=== PATIENT | female | born 1975 | race Caucasian/White ===

== ENCOUNTER 2016-12-24 15:41 | Emergency (ER) | payer SELFPAY ==
[~2016-12-24] VITALS: Ht 162.6 cm; Wt 56.1 kg
[2016-12-24 15:45] VITALS: BP 145/82; PULSE 74; RESP 16; TEMP 98.6; O2SAT 100
[2016-12-24] MEDS ORDERED: SODIUM CHLOR 0.9% 1000 ML INJ 1,000 ML IV SCH (16:07)
--- NOTE | 2016-12-24 16:09 | PD ---
HPI Chief Complaint: Skin Problem Time Seen by Provider: 16:09 Travel History International Travel<30 days: No Contact w/Intl Traveler<30days: No Traveled to known affect area: No History of Present Illness HPI 41-year-old female presents to the emergency department for evaluation of anterior neck pain that began about 1 hour ago. Patient states she was driving her car and suddenly felt a pressure in her anterior neck and throat and then felt a "pop." States that after this pop she felt as though she had some difficulty swallowing. States that she looked at her neck in the mirror and sees an indentation in her anterior neck underneath her chin. She denies painful swallowing, sore throat, drooling, vomiting, cough, shortness of breath , difficulty breathing. She states that it "still just doesn't feel right" which is why she came to the ED. Denies any medical conditions. Denies taking any medications. No other complaints. PFSH Past Medical History Medical History: Denies Significant Hx ?: Not LMP: 3 weeks ago Social History Alcohol Use: No Tobacco Use: No Substance Use: No Allergies-Medications (Allergen,Severity, Reaction): Coded Allergies: No Known Allergies (Unverified , 12/24/16) Review of Systems Except as stated in HPI: all other systems reviewed are Neg Physical Exam Narrative GENERAL: Well-nourished and well-developed female patient in no acute distress who is nontoxic appearing. SKIN: Warm and dry. HEAD: Normocephalic and atraumatic. EYES: No injection, drainage, or hyphema noted. PERRLA. EOMI. ENT: No nasal drainage noted. Oropharynx is clear and the airway is patent. No sublingual edema. No drooling or stridor. TMs are normal with good landmarks. NECK: Supple and the trachea is midline. No lymphadenopathy is noted throughout the cervical chains. No masses, no erythema. Thyroid is normal. CARDIOVASCULAR: Regular rate and rhythm. RESPIRATORY: Breath sounds are equal bilaterally with no accessory muscle use, wheezing, rhonchi, or crackles. MUSCULOSKELETAL: No obvious deformities, swelling, cyanosis, or ecchymosis is present throughout the upper and lower extremities. Patient has full range of motion without any signs of neurovascular compromise. NEUROLOGICAL: Awake, alert, and oriented. Normal speech and gait. Cranial nerves are grossly intact. Data Data Last Documented VS Vital Signs Date Time Temp Pulse Resp B/P Pulse Ox O2 Delivery O2 Flow Rate FiO2 12/24/16 15:45 98.6 74 16 145/82 100 Orders Sodium Chlor 0.9% 1000 Ml Inj (Ns 1000 M (12/24/16 16:07) MDM Medical Decision Making Medical Screen Exam Complete: Yes Emergency Medical Condition: Yes Differential Diagnosis Neck pain versus muscle strain versus diverticulum versus other Narrative Course 41-year-old female presents to the emergency department for evaluation of anterior neck pain after feeling a sudden pop in her throat. Patient is afebrile, vital signs are stable. Physical examination is unremarkable. I don' t see any abnormality on exam, airway is patent and she is handling secretions without difficulty. Initially CT soft tissue of the neck was ordered. However , my attending physician Dr. Sahu evaluated the patient and determined this is not necessary due to the patients benign examination. He suggests likely musculoskeletal in etiology and recommends outpatient follow-up with ENT and I agree with this assessment and plan. Patient is agreeable with this plan. Diagnosis Primary Impression: Anterior neck pain Referrals: Ear / Nose / Throat Specialist Patient Instructions: General Instructions Additional Instructions: Follow-up with your Primary Care Physician or ENT. Return to the ED for any acute worsening of symptoms. Med/Other Pt SpecificInfo: No Change to Meds Disposition: 01 DISCHARGE HOME Condition: Stable Elizabeth Parrish Dec 24, 2016 16:09
== END 2016-12-24 16:40 | disposition home or self-care (01) ==
LOC: PHEFT 15:41
DX: M54.2 Cervicalgia (principal); R13.10 Dysphagia, unspecified